=== PATIENT | male | born 1965 | race Caucasian/White ===

== ENCOUNTER → 2022-10-17 | Outpatient (REF) | payer OTHER | LOC: M LAB REF 12:18 | PROVIDERS: ATTEND Internal Medicine Gastroenterology | DX: K51.90 Ulcerative colitis, unspecified, without complications (principal) ==

== ENCOUNTER 2024-06-11 07:14 | Day surgery (SDC) | payer OTHER ==
[~2024-06-11] VITALS: Ht 177.8 cm; Wt 102.1 kg
[~2024-06-11 07:14] MED LIST: CINN500C15 PO; HUMI40KI SC; HYDR-3490 PO; LOPE1CAP5 PO; LOSA50TA28 PO; METO1TAB33 PO; PROB250C PO; RA T500C2 PO; [UNRECOGNIZED DRUG - OTHER] PR
[2024-06-11] MEDS ORDERED: propofoL 200 MG/20 ML VIAL As Ordered ONE (08:04)
[2024-06-11] MEDS ORDERED: LIDOCAINE 2% 100MG/5ML SDV (FOR ANES.) As Ordered ONE (08:04)
[2024-06-11 09:05] VITALS: BP 126/83; TEMP 97; O2SAT 98
== END 2024-06-11 09:11 | disposition home or self-care (01) ==
LOC: M OPP 07:14
PROVIDERS: ATTEND Internal Medicine Gastroenterology
DX: D12.6 Benign neoplasm of colon, unspecified (principal); K62.89 Other specified diseases of anus and rectum; K51.30 Ulcerative (chronic) rectosigmoiditis without complications; K64.0 First degree hemorrhoids; I10 Essential (primary) hypertension; R73.03 Prediabetes; Z79.899 Other long term (current) drug therapy